=== PATIENT | female | born 2000 | race Two or more races ===

== ENCOUNTER 2024-12-28 19:46 | Observation (INO) ==
--- NOTE | 2024-12-28 20:49 | DR.NAUSEAF ---
HPI Time Seen Time Seen by Provider: 12/28/24 20:48 Primary Care Physician Primary Care Physician: ODETTE HPI Comment HPI Comment: She is here with her s/o and neither speak German; information obtained through [employer]. She developed diffuse abd pain, n/v earlier this afternoon which has persisted; no fever or chills; last bm on Friday and wnl; gestures to entire belly when asked where pain is; had a period earlier this month which was wnl. Complaints Chief Complaint:: Patient ambulatory in er with complaints of severe abdominal pain since 1430 today. pt localizes pain to upper abdominal region. Self Treatment fo Chief Complaint: NA COVID-19 Coronavirus risk:travel/contact w/high risk person: No Source History Provided: Patient and Other Mode of Arrival Mode of Arrival: Ambulatory Timing Onset of Chief Complaint: 12/28/24 PMH PMH Past Medical History: No Past Surgical History: No Surgical History: No History Family History History of Family Medical Conditions: No Social History Does patient currently use any type of tobacco product: No Have you used tobacco products in the last 12 months: No Type of Tobacco Use: None Does any household member use tobacco: No Alcohol Use: None Do you use any recreational Drugs:: No Lives With: Family Lives Where: Home Travel Risk Coronavirus risk:travel/contact w/high risk person: No Infectious screening Have you traveled outside the country in the last 6 months?: No Isolation: Standard ROS Review of Systems Constitutional: See HPI Eyes: No Symptoms Reported ENTM: No Symptoms Reported Respiratoy: No Symptoms Reported Cardiovascular: No Symptoms Reported Gastrointestinal/Abdominal: See HPI Genitourinary: negative Dysuria Neurological: No Symptoms Reported Musculoskeletal: No Symptoms Reported Integumentary: No Symptoms Reported Hematologic/Lymphatic: No Symptoms Reported Endocrine: No Symptoms Reported Psychiatric: No Symptoms Reported PE Vital Signs Vitals: Vital Signs Temperature 99.2 F Pulse Rate 70 Respiratory Rate 21 Respiratory Rate 21 Blood Pressure 108/58 O2 Sat by Pulse Oximetry 98 General Limitations: Language Barrier General Appearance: Alert and Other (appears very uncomfortable) Head Head Exam: Normal Inspection Eyes Eye exam: Normal Appearance ENT ENT Exam: Normal Exam Neck Neck Exam: Normal Inspection Chest Chest Inspection: Normal Inspection Respiratory Respiratory Exam: Normal Lung Sounds Bilat Respiratory Exam: Bilateral: Clear to Auscultation Cardiovascular Cardiovascular Exam: Regular Rate and Normal Rhythm Abdominal Exam Abdominal Exam: Normal Inspection, Normal Bowel Sounds, Soft and Tenderness (diffusely) Rectal Rectal Exam: Deferred External Exam: Female: Deferred : Speculum Exam (Female): Deferred : Bimanual Exam (female): Deferred Extremities Extremities Exam: Normal Inspection Back Back Exam: Normal Inspection Neurologic Neurological Exam: Alert and Oriented X3 Psychiatric Psychiatric Exam: Normal Affect and Normal Mood Skin Skin Exam: Warm, Dry, Intact and Normal Color COURSE Reevaluation 1st: Improved Consultation Call Returned: 22:53 (Dr Quintanilla accepts admission.) ROR Labs Reviewed Laboratory Results Reviewed?: Yes 12/28/24 21:00 12/28/24 21:00 Laboratory: WBC 10.3 X10^3/uL (3.6-10.0) H 12/28/24 21:00 RBC 4.44 X10^6/uL (3.5-5.4) 12/28/24 21:00 Hgb 12.2 g/dL (12.0-16.0) 12/28/24 21:00 Hct 36.4 % (36.0-47.0) 12/28/24 21:00 MCV 82.1 fL (80.0-100.0) 12/28/24 21:00 MCH 27.5 pg (27.0-34.0) 12/28/24 21:00 MCHC 33.4 g/dL (33.0-35.0) 12/28/24 21:00 RDW 13.9 % (11.6-16.5) 12/28/24 21:00 Plt Count 368 X10^3/uL (150.0-450.0) 12/28/24 21:00 MPV 7.8 fL (7.4-11.0) 12/28/24 21:00 Neut % (Auto) 67.5 % (42.0-75.0) 12/28/24 21:00 Lymph % (Auto) 25.4 % (21.0-51.0) 12/28/24 21:00 [place] % (Auto) 5.6 % (0.0-13.0) 12/28/24 21:00 Eos % (Auto) 1.0 % (0.9-2.9) 12/28/24 21:00 Baso % (Auto) 0.5 % (0.2-1.0) 12/28/24 21:00 Neut # (Auto) 7.0 x10^3/uL (2.2-4.8) H 12/28/24 21:00 Lymph # (Auto) 2.6 X10^3/uL (1.3-2.9) 12/28/24 21:00 [place]row # (Auto) 0.6 x10^3/uL (0.3-0.8) 12/28/24 21:00 Eos # (Auto) 0.1 x10^3/uL (0.0-0.2) 12/28/24 21:00 Baso # (Auto) 0.1 X10^3/uL (0.0-0.1) 12/28/24 21:00 Absolute Nucleated RBC 0.2 /100WBC 12/28/24 21:00 Sodium 140 mmol/L (136-145) 12/28/24 21:00 Corrected Sodium TNP 12/28/24 21:00 Potassium 3.5 mmol/L (3.5-5.1) 12/28/24 21:00 Chloride 104 mmol/L (98-107) 12/28/24 21:00 Carbon Dioxide 23.8 mmol/L (21-32) 12/28/24 21:00 BUN 7 mg/dL (7-18) 12/28/24 21:00 Creatinine 0.65 mg/dL (0.55-1.02) 12/28/24 21:00 Est GFR (MDRD) Af Amer > 60 (>60) 12/28/24 21:00 Est GFR (MDRD) Non-Af > 60 (>60) 12/28/24 21:00 Glucose 84 mg/dL (65-99) 12/28/24 21:00 Calcium 8.8 mg/dL (8.5-10.1) 12/28/24 21:00 Corrected Calcium TNP 12/28/24 21:00 Total Bilirubin 0.50 mg/dL (0.2-1.0) 12/28/24 21:00 AST 19 Units/L (15-37) 12/28/24 21:00 ALT 21 Units/L (12-78) 12/28/24 21:00 Alkaline Phosphatase 146 Units/L (46-116) H 12/28/24 21:00 Total Protein 8.4 g/dL (6.4-8.2) H 12/28/24 21:00 Albumin 4.0 g/dL (3.4-5.0) 12/28/24 21:00 Globulin 4.4 g/dL (2.5-4.5) 12/28/24 21:00 Albumin/Globulin Ratio 0.9 Ratio (1.1-2.1) L 12/28/24 21:00 Lipase 37 Units/L (16-77) 12/28/24 21:00 HCG, Qual Negative <10 mIU/mL 12/28/24 21:00 HCG, Quant Cancelled 12/28/24 21:00 Specimen Type Clean catch urine 12/28/24 21:15 Urine Color Yellow (YELLOW) 12/28/24 21:15 Urine Appearance Clear (CLEAR) 12/28/24 21:15 Urine pH 6.0 (5.0 - 8.0) 12/28/24 21:15 Ur Specific [place] 1.025 (1.000-1.030) 12/28/24 21:15 Urine Protein Negative (NEGATIVE) 12/28/24 21:15 Urine Glucose (UA) Negative (NEGATIVE) 12/28/24 21:15 Urine Ketones 1+ (NEGATIVE) 12/28/24 21:15 Urine Blood 1+ (NEGATIVE) 12/28/24 21:15 Urine Nitrite Negative (NEGATIVE) 12/28/24 21:15 Urine Bilirubin Negative (NEGATIVE) 12/28/24 21:15 Urine Urobilinogen Normal (NORMAL) 12/28/24 21:15 Ur Leukocyte Esterase Negative (NEGATIVE) 12/28/24 21:15 Urine RBC None seen /HPF (0-3) 12/28/24 21:15 Urine WBC None seen /HPF (0-5) 12/28/24 21:15 Ur Squamous Epith Cells Rare /HPF (NEGATIVE) 12/28/24 21:15 Urine Bacteria Negative /HPF (NEGATIVE) 12/28/24 21:15 Ur Culture Indicated? No/not indicated 12/28/24 21:15 Other Results Comments: [id number] long discussion via google translate through re: risks of leaving w/o surgical evaluation; they are given information about appendicitis in Serbian; she is still adamant that the pain is better and she does not need surgery. Finally, I asked if they had someone who could translate directly, and is trying to find someone. [id number] friend had conversation with pt and convinced her to stay. XRAY X-ray Results: ct abd/pelvis w/o: 1. Evidence for acute appendicitis, without evidence for free fluid, free air, or abscess formation. Axial image 55 and 67; coronal image 16-26. 2. No evidence for bowel herniation/obstruction, colitis or diverticulitis seen. 3. No evidence for pyelonephritis, renal stone disease or obstructive uropathy. 4. No free fluid, free air, mass lesions, or lymphadenopathy seen. Opioid Opioid Risk Tool Age (Silas box if 16-45): Yes History of Preadolescent Sexual Abuse: No Total: 1 Total Score Risk Category: Low Risk Copyright: Hardik DO predicting aberrant behaviors Discharge Plan Diagnosis Discharge Problem: Acute appendicitis Discharge Plan Patient Disposition: 09 ADMITTED INPATIENT Condition: Stable
[2024-12-28] MEDS: ZOFRAN INJ 4 MG VIAL ONE (21:03)
[2024-12-28] MEDS: TORADOL 30 MG VIAL IVP ONE (21:05)
[2024-12-28] MEDS: ZOFRAN INJ 4 MG VIAL IVP ONE (21:05)
[2024-12-28 21:30] LABS: MEAN PLATELET VOLUME 7.8 fL (7.4-11.0); RED CELL DISTRIBUTION WIDTH 13.9 % (11.6-16.5)
[2024-12-28 21:35] LABS: BLOOD/HEMOGLOBIN,URINE 1+ (NEGATIVE); LEUKOCYTE ESTERASE ,URINE NEGATIVE (NEGATIVE); NITRITES,URINE NEGATIVE (NEGATIVE)
[2024-12-28 21:36] LABS: APPEARANCE,URINE CLEAR (CLEAR)
[2024-12-28 21:37] LABS: SERUM PREGNANCY TEST, QUAL NEGATIVE <10 mIU/mL
[2024-12-28 21:42] LABS: SQUAMOUS EPITHELIAL CELL,UR RARE /HPF (NEGATIVE)
[2024-12-28 21:43] LABS: CREATININE 0.65 mg/dL (0.55-1.02); eGFR NON BLACK RACES > 60 (>60)
--- NOTE | 2024-12-28 22:12 | CT ---
EXAM: CT ABDOMEN AND PELVIS WITHOUT INTRAVENOUS CONTRAST HISTORY: Severe upper abdominal pain. TECHNIQUE: Spiral axial CT images are obtained through the abdomen and pelvis without the administration of oral contrast and intravenous contrast. Additional coronal and sagittal reformatted images are reconstructed. COMPARISON: None available. FINDINGS: GASTROINTESTINAL TRACT: Evidence for acute appendicitis, marked by a dilated (1 cm diameter), thickwalled, fluid-filled appendix with intraluminal appendicolith and mild periappendiceal streaky inflammatory change. No drainable fluid collection, free air, or abscess formation seen. There is no evidence for bowel herniation, bowel obstruction, colitis or diverticulitis. GENITOURINARY SYSTEM: The kidneys are unremarkable. There is no ureteral calculus or stigmata of obstructive uropathy. The urinary bladder is grossly unremarkable for a non-dedicated exam. CT ABDOMEN: The liver, spleen, pancreas, adrenal glands, gallbladder, aorta, and inferior vena cava are within normal limits for a CT scan. There is no intra-abdominal or retroperitoneal lymphadenopathy, free fluid, or free air seen. No abdominal herniation is noted. CT PELVIS: No pelvic sidewall or inguinal lymphadenopathy is seen. No inguinal herniation is noted. No free fluid or free air is seen. BONES AND JOINTS: The visualized bony structures are within normal limits. LUNG BASES: The lung bases are clear. IMPRESSION: 1. Evidence for acute appendicitis, without evidence for free fluid, free air, or abscess formation. Axial image 55 and 67; coronal image 16-26. 2. No evidence for bowel herniation/obstruction, colitis or diverticulitis seen. 3. No evidence for pyelonephritis, renal stone disease or obstructive uropathy. 4. No free fluid, free air, mass lesions, or lymphadenopathy seen. THIS IS AN ELECTRONICALLY VERIFIED FINAL REPORT 12/28/2024 10:06 PM - Electronically signed by Fidelina Hobbs MD
[2024-12-28] MEDS ORDERED: PRECEDEX INJ VIAL ONE (22:53)
[2024-12-28] MEDS: NS 250 ML IV 25 ML IV PRN (22:53)
[2024-12-28] MEDS: ZOSYN VIAL 3.375 GRAMS 3.375 G in NS 100 ML IV 100 ML IV STA (22:53)
[2024-12-28] MEDS ORDERED: SUPRANE IN ONE (22:53)
[2024-12-28] MEDS ORDERED: ZOFRAN INJ 4 MG VIAL IVP PRN (22:58)
[2024-12-28] MEDS ORDERED: CONSULT PHARMACY - POTASSIUM & MAGNESIUM XX SCH (23:00)
--- NOTE | 2024-12-28 23:13 | EKG ---
Test Reason : preop Blood Pressure : */* mmHG Vent. Rate : 67 BPM Atrial Rate : 67 BPM P-R Int : 120 ms QRS Dur : 86 ms QT Int : 410 ms P-R-T Axes : 33 22 41 degrees QTc Int : 433 ms Normal sinus rhythm Normal ECG No previous ECGs available Confirmed by Griffin Trammell MD ([id number]) on 12/29/2024 6:39:17 AM Referred By: Confirmed By: Griffin Trammell MD
[2024-12-29] MEDS: NS 1,000 ML IV 1,000 ML IV SCH (00:56)
[2024-12-29] MEDS: ZOSYN VIAL 2.25 GRAMS 2.25 G in NS 100 ML IV 100 ML IV SCH (01:28)
[2024-12-29 06:07] LABS: MEAN PLATELET VOLUME 7.5 fL (7.4-11.0); RED CELL DISTRIBUTION WIDTH 14.3 % (11.6-16.5)
[2024-12-29 06:20] LABS: COR CA(FOR HYPOALB) 8.9 mg/dL (8.5-10.1); CREATININE 0.66 mg/dL (0.55-1.02); eGFR NON BLACK RACES > 60 (>60)
[2024-12-29] MEDS: VERSED ONE (08:27)
[2024-12-29] MEDS: FENTANYL VIAL INJ 100 mcg ONE (08:27)
[2024-12-29] MEDS: ZOFRAN INJ 4 MG VIAL ONE (08:28)
[2024-12-29] MEDS: DIPRIVAN VIAL 20 ML ONE (08:28)
[2024-12-29] MEDS: BRIDION ONE (08:29)
[2024-12-29] MEDS: ZEMURON 100 MG VIAL ONE (08:29)
[2024-12-29] MEDS: NS 100 ML IV 100 ML ONE (08:51)
[2024-12-29] MEDS: ANCEF VIAL 1 GRAM ONE (08:51)
[2024-12-29] MEDS: LR 1,000 ML IV 1,000 ML IV ONE (08:52)
[2024-12-29] MEDS: ANCEF VIAL 1 GRAM IV PRN (08:55)
[2024-12-29] MEDS: LR IV PRN (08:55)
[2024-12-29] MEDS: ZOFRAN INJ 4 MG VIAL IVP PRN (08:57)
[2024-12-29] MEDS: VERSED IVP PRN (08:57)
[2024-12-29] MEDS ORDERED: XYLOCAINE 2 % (PLAIN) PRN (09:01)
[2024-12-29] MEDS: DIPRIVAN VIAL 100 ML IVP PRN (09:02)
[2024-12-29] MEDS: ZEMURON 100 MG VIAL IVP PRN (09:03)
[2024-12-29] MEDS: FENTANYL VIAL INJ 100 mcg IVP PRN (09:09)
[2024-12-29] MEDS: MARCAINE 0.5% ONE (09:12)
[2024-12-29] MEDS: BACTROBAN TOPICAL OINT ONE (09:12)
[2024-12-29] MEDS: NS 1,000 ML IV 1,000 ML ONE (09:12)
[2024-12-29] MEDS: KETAMINE HCL ONE (09:15)
[2024-12-29] MEDS: TORADOL 30 MG VIAL ONE (09:16)
[2024-12-29] MEDS: KETAMINE HCL IV PRN (09:22)
[2024-12-29] MEDS: TORADOL 30 MG VIAL IVP PRN (09:32)
[2024-12-29] MEDS ORDERED: BENADRYL INJ 50 MG VIAL IVP PRN (09:35)
[2024-12-29] MEDS ORDERED: ZOFRAN INJ 4 MG VIAL IVP PRN (09:35)
[2024-12-29] MEDS ORDERED: REGLAN INJ 10 MG VIAL IVP PRN (09:35)
[2024-12-29] MEDS ORDERED: BARHEMSYS INJ IVP PRN (09:35)
[2024-12-29] MEDS ORDERED: DILAUDID INJ IVP PRN (09:35)
[2024-12-29] MEDS: PRECEDEX INJ VIAL IVP PRN (09:38)
[2024-12-29] MEDS: BRIDION IVP PRN (09:46)
[2024-12-29] MEDS: ZOSYN VIAL 3.375 GRAMS 3.375 G in NS 100 ML IV 100 ML IV SCH (11:22)
[2024-12-29] MEDS: D5 1/2 NS 1,000 ML 1,000 ML IV SCH (11:33)
[2024-12-29] MEDS: TYLENOL 325 MG TAB PO PRN (13:54)
[2024-12-30] MEDS: NS 250 ML IV 25 ML IV PRN (05:02)
[2024-12-30 05:10] LABS: MEAN PLATELET VOLUME 7.9 fL (7.4-11.0); RED CELL DISTRIBUTION WIDTH 14.2 % (11.6-16.5)
[2024-12-30 05:38] LABS: COR CA(FOR HYPOALB) 8.9 mg/dL (8.5-10.1); CREATININE 0.71 mg/dL (0.55-1.02); eGFR NON BLACK RACES > 60 (>60)
[2024-12-30] MEDS ORDERED: CONSULT PHARMACY - POTASSIUM & MAGNESIUM XX SCH (07:00)
[2024-12-30 07:53] VITALS: BP 97/61; PULSE 57; TEMP 98; O2SAT 97
[2024-12-30] MEDS: ZOFRAN INJ 4 MG VIAL IVP PRN (08:09)
[2024-12-30] MEDS: K-DUR TAB 20 MEQ PO SCH (08:09)
[2024-12-30] MEDS: MORPHINE SULFATE INJ 2 MG INJ IVP PRN (08:09)
[2024-12-30 09:01] VITALS: RESP 19
== END 2024-12-30 10:45 | disposition home or self-care (01) ==
LOC: MED/SURG 19:46 → ER 19:46 → MED/SURG 12-29 00:15
PROVIDERS: ADMIT Surgery; ATTEND Surgery
PROC: APPYLAP (ICD-10-PCS; 2024-12-29 09:15)